=== PATIENT | male | born 2000 | race Caucasian/White ===

== ENCOUNTER 2021-01-15 16:03 | Emergency (ER) | payer SELFPAY ==
[~2021-01-15] VITALS: Ht 180 cm; Wt 77.0 kg
[2021-01-15] MEDS ORDERED: CEPH500T PO (17:33)
--- NOTE | 2021-01-15 17:34 | ED Upper Extremity ---
General Chief Complaint: Laceration Stated Complaint: CUT R ARM Nursing Triage Note: ARRIVED VIA AMB. 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 He went to public school so his tetanus vaccination should be up-to-date within the last 10 years. No numbness or tingling distal to the injury. 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 wheel that cut his arm Onset: just prior to arrival Severity: moderate Pain/Injury Location: right forearm Method of Injury: direct blow Modifying Factors: Worse With Movement Allergies and Home Medications Allergies Coded Allergies: No Known Drug Allergies (Unverified , 01/15/21) Home Medications Cephalexin 500 Mg Tablet, 500 MG PO TID Prescribed by: NATHALY MIDDLETON on 01/15/21 0582 Patient Home Medication List Home Medication List Reviewed: Yes Review of Systems Constitutional: see HPI EENTM: see HPI Respiratory: no symptoms reported Cardiovascular: no symptoms reported Genitourinary: no symptoms reported Musculoskeletal: no symptoms reported Skin: no symptoms reported Psychiatric/Neurological: No Symptoms Reported Past Crjlrqm-Bzxtmu-Bhjywr Hx Patient Social History Smoking Status: Current Everyday Smoker Substance use?: Yes Substance type: Marijuana Alcohol Use?: Yes Alcohol Frequency: Several times a month Physical Exam Vital Signs Vital Signs - First Documented 01/15/21 16:28 Temp 36.9 Pulse 56 Resp 16 B/P (MAP) 112/72 (85) Pulse Ox 97 O2 Delivery Room Air Capillary Refill : Less Than 3 Seconds Height, Weight, BMI Height: '" Weight: lbs. oz. kg; 23.00 BMI Method: General Appearance: WD/WN, no apparent distress HEENT: PERRL/EOMI, normal ENT inspection Respiratory: no respiratory distress, no accessory muscle use Shoulder: normal inspection, non-tender Elbow/Forearm: Right, pain (There is a 2 cm laceration down to the muscle fascia to the radial side of the right forearm without active bleeding. Distally he is neurovascularly intact. No foreign body identified. Irrigated thoroughly with saline. Closed with simple erupted sutures, 3 of them, size 4-0 Prolene.) Wrist: Yes normal inspection Hand: normal inspection, non-tender Neurologic/Psychiatric: alert, normal mood/affect, oriented x 3 Skin: normal color, warm/dry Progress/Results/Core Measures Results/Orders Vital Signs/I&O 01/15/21 01/15/21 16:28 17:36 Temp 36.9 Pulse 56 70 Resp 16 12 B/P (MAP) 112/72 (85) 113/69 Pulse Ox 97 99 O2 Delivery Room Air Room Air Blood Pressure Mean: 85 Departure Impression Primary Impression: Arm laceration Disposition: HOME, SELF-CARE Condition: Stable Departure-Patient Inst. Decision time for Depature: 17:33 Patient Instructions: Laceration Repair With Stitches ED Add. Discharge Instructions: You can shower letting water run over this starting today but do not soak this in water such as a hot tub bathtub or swimming pool until the stitches are removed. Return to ER in 7 to 10 days to have the stitches removed. Take the antibiotic as directed. All discharge instructions reviewed with patient and/or family. Voiced understanding. Scripts Cephalexin (Cephalexin) 500 Mg Tablet 500 MG PO TID, #14 TAB Prov: NATHALY MIDDLETON APRN 01/15/21 NATHALY MIDDLETON APRN Jan 15, 2021 17:34
[2021-01-15 17:36] VITALS: BP 113/69
== END 2021-01-15 17:38 | disposition home or self-care (01) ==
LOC: ER 16:08
DX: S51.811A Laceration without foreign body of right forearm, initial encounter (principal); F17.200 Nicotine dependence, unspecified, uncomplicated; W31.2XXA Contact with powered woodworking and forming machines, initial encounter
CPT/HCPCS: 12002